=== PATIENT | male | born 1965 | race African-American/Black ===

== ENCOUNTER 2017-01-02 22:45 | Emergency (ER) | payer SELFPAY ==
[~2017-01-02] VITALS: Ht 180.3 cm; Wt 108.9 kg
[2017-01-02] MEDS ORDERED: BACITRACIN-POLYMYXIN B TOPICAL OINT UD TOP ONE ×2 (23:07→23:30)
[2017-01-02 23:27] VITALS: BP 130/84
== END 2017-01-02 23:57 ==
LOC: ER 22:47
DX: S00.01XA Abrasion of scalp, initial encounter (principal); H57.13 Ocular pain, bilateral; W25.XXXA Contact with sharp glass, initial encounter; Y93.89 Activity, other specified; Y99.8 Other external cause status; Y92.89 Other specified places as the place of occurrence of the external cause